=== PATIENT | female | born 1995 | race Caucasian/White ===

== ENCOUNTER 2025-09-04 03:57 | Inpatient (IN) | payer BC, SELFPAY ==
[2025-09-04 04:20] VITALS: BP 116/64; BMI 30.1
[2025-09-04 04:58] LABS: Hematocrit 36.1 % (37.0-47.0); Hemoglobin 12.8 g/dL (12.0-16.0); Mean Corp Hgb Conc. 35.5 g/dL (33.0-37.0); Mean Corpuscular Volume 90.0 fL (81.0-99.0); Nucleated Red Blood Cells % 0 %; Platelet Count 213 10^3/uL (130-400); Red Cell Dist. Width 11.8 % (11.5-14.5)
[2025-09-04] MEDS: SUBLIMAZE 100 MCG EPIDURAL (07:06)
[2025-09-04] MEDS: FENTANYL/BUPIVACAINE 100 EPIDURAL ×2 (07:07→15:46)
[2025-09-04] MEDS: LR 1000 IV ×2 (07:22→13:17)
[2025-09-04] MEDS: PITOCIN 30 UNITS/NSS 500 ML IV ×2 (08:25→20:13)
[2025-09-04] MEDS: BICITRA 30 ML PO (19:12)
[2025-09-04] MEDS: TYLENOL 975 MG PO (19:12)
[2025-09-04] MEDS: ANCEF 10 IV (19:20)
[2025-09-04] MEDS: ZITHROMAX INFUSION 250 IV (19:20)
[2025-09-04 19:48] LABS: Cord ABG Comment CORD BLOOD
[2025-09-04 19:50] LABS: B.E. Cord ABG -1.2 mMOL/L; HCO3 Cord ABG 23.6 mmol/L; O2 Saturation % Cord ABG 63.9 %; PCO2 Cord ABG 39 mmHg; PO2 Cord ABG 30 mmHg; pH Cord ABG 7.39
[2025-09-04 19:53] LABS: B.E. Cord ABG -2.5 mMOL/L; HCO3 Cord ABG 22.5 mmol/L; O2 Saturation % Cord ABG 64.8 %; PCO2 Cord ABG 39 mmHg; PO2 Cord ABG 31 mmHg; pH Cord ABG 7.37
[2025-09-04] MEDS: TORADOL 15 MG IV (22:06)
[2025-09-05] MEDS: TORADOL 15 MG IV ×3 (03:55→16:02)
[2025-09-05 04:43] LABS: Hematocrit 33.0 % (37.0-47.0); Hemoglobin 11.4 g/dL (12.0-16.0); Mean Corp Hgb Conc. 34.5 g/dL (33.0-37.0); Mean Corpuscular Volume 89.2 fL (81.0-99.0); Platelet Count 177 10^3/uL (130-400); Red Cell Dist. Width 11.9 % (11.5-14.5)
--- NOTE | 2025-09-05 07:42 | W.PN.ANS.POP ---
Anesthesia Post Operative
- Anesthesia Post Op Note
Vital Signs Stable-See Nursing Note: Yes
Airway Patent: Yes
Adequate Pain Control: Yes
Change in Mental Status: No
Current Postoperative Nausea & Vomiting: No
Anesthesia Complications: No
General Anesthetic Recall: No (n/a spinal)
Unplanned Admission: No
Post Op Hydration Adequate: Yes
[2025-09-05] MEDS: COLACE 100 MG PO (08:52)
[2025-09-05] MEDS: PRENATAL PLUS 1 TABLET PO (08:52)
[2025-09-05 11:33] LABS: Syphilis/T. pallidum Ab Reflex Negative (Negative)
[2025-09-05] MEDS: COLACE PO (20:39)
[2025-09-05] MEDS: MOTRIN 600 MG PO (22:13)
[2025-09-05] MEDS: TYLENOL 650 MG PO (22:13)
[2025-09-06] MEDS: TYLENOL 650 MG PO ×4 (05:07→22:00)
[2025-09-06] MEDS: MOTRIN 600 MG PO ×3 (05:07→18:14)
[2025-09-06] MEDS: COLACE PO ×2 (11:38→21:45)
[2025-09-06] MEDS: PRENATAL PLUS PO (11:39)
[2025-09-07] MEDS: MOTRIN 600 MG PO (00:15)
--- NOTE | 2025-09-07 07:54 | W.DS.TRANS ---
DC Summary - [employer]
-
Discharge Instructions:
Discharge Diagnosis/Procedures delivered by section for
nonreassuring heart rate pattern
Diet Regular
Activity No strenuous activity
Driving Restrictions No driving for 2 weeks
Bathing Restrictions OK to Shower
Instructions:
Stand-Alone Forms: LDRP Delivery
Changes to Home Medications: No
Discharge Medications:
DC Medications w/original date entered in [facility]
cetirizine 5 mg tablet (Zyrtec) 5 mg PO DAILY 09/04/25
prenat.vits,roselyn,ymv-fppc-cifae 1 tab PO DAILY 09/04/25
acetaminophen 325 mg tablet 650 mg (2 x 325 mg) PO Q4HPRN PRN mild pain #0 tabs 09/07/25
ibuprofen 600 mg tablet 600 mg PO Q6HPRN PRN cramps #0 tabs 09/07/25
Home Medication Changes
Pending Results: Yes
Additional Pending Results:
placental pathology
Total time spent discharging patient (in min): 20
== END 2025-09-07 11:02 | disposition home or self-care (01) | DRG 788 ==
LOC: LDRP 03:57
PROVIDERS: Obstetrics & Gynecology; ADMITTING PHYSICIAN Obstetrics & Gynecology; FAMILY PHYSICIAN Family Medicine
PROC: 10D00Z1 Extraction of Products of Conception, Low, Open Approach (ICD-10-PCS; 2025-09-04)
DX: O48.0 Post-term pregnancy (principal); Z3A.40 40 weeks gestation of pregnancy; Z37.0 Single live birth; O69.81X0 Labor and delivery complicated by cord around neck, without compression, not applicable or unspecified; O76 Abnormality in fetal heart rate and rhythm complicating labor and delivery
CPT/HCPCS: 82803; 85025; 85027; 86780; 86850; 86900; 86901; 88307